=== PATIENT | male | born 1950 | race Caucasian/White ===

== ENCOUNTER 2018-10-07 08:59 | Day surgery (SDC) | payer MEDICARE, OTHER ==
[~2018-10-07] VITALS: Ht 157.5 cm; Wt 77.5 kg
[~2018-10-07 08:59] MED LIST: ASPIRIN; ATORVASTATIN; ENALAPRIL; GLIMEPERIDE; INHALERS; JANUMET; METFORMIN; METOPROLOL; PANTOPRAZOLE
[2018-10-07 09:43] VITALS: Ht 157.5 cm; Wt 77.5 kg
[2018-10-07 10:13] VITALS: BP 162/90; PULSE 85; RESP 18
--- NOTE | 2018-10-07 10:21 | PREAC ---
Date/Time of Note Date/Time of Note DATE: 10/07/18 TIME: 10:20 Anesthesia Eval and Record Evaluation Time Pre-Procedure Interview DATE: 10/07/18 TIME: 10:20 Age 68 Sex male NPO: 8 hrs Preoperative diagnosis GERD Planned procedure egd, colonoscopy Past Medical History Past Medical History: Includes Cardio: HTN Endo: Diabetes Pulm: Smoking Hx, COPD GI: GERD, Obesity Surgery & Anesthesia Issues No known issue Meds Anticoagulation: No Beta Robin within 24 hr: No Reason Beta Robin not given: Pt. not on B-Robin Reported Medications [Aspirin] No Conflict Check 10/07/18 [Atorvastatin] No Conflict Check 10/07/18 [Pantoprazole] No Conflict Check 10/07/18 [Glimeperide] No Conflict Check 10/07/18 [Inhalers] No Conflict Check 10/07/18 [Enalapril] No Conflict Check 10/07/18 [Metoprolol] No Conflict Check 10/07/18 [Janumet + Metformin] No Conflict Check 10/07/18 Meds reviewed: Yes Allergies Coded Allergies: No Known Allergy (Unverified , 10/07/18) Allergies Reviewed: Yes Labs/Studies Labs Reviewed: Reviewed by anesthesiologist test: N/A Studies: ECG Pre-procedure Exam Airway: Adequate mouth opening, Adequate thyromental dist Mallampati: Mallampati II Teeth: Abnormal Lung: Normal Heart: Normal ASA Physical Status ASA physical status: 3 Emergency: None Planned Anesthetic General/MAC: Mask, MAC Pre-operative Attestations Prior to commencing anesthesia and surgery, the patient was re-evaluated, there was verification of: *The patient's identity *The results of appropriate recent lab work and preoperative vital signs *The above evaluation not changing prior to induction *Anesthetic plan, risk benefits, alternative and complications discussed with patient/family; questions answered; patient/family understands, accepts and wishes to proceed. NINA SCHULTZ Oct 07, 2018 10:21
[2018-10-07] MEDS ORDERED: PROPOFOL 40 ML ONE (10:24)
[2018-10-07] MEDS ORDERED: GLYCOPYRROLATE 0.4 MG INJ ONE (10:25)
[2018-10-07 11:27] VITALS: BP 132/90; RESP 16
--- NOTE | 2018-10-08 13:32 | PAC ---
Date/Time of Note Date/Time of Note DATE: 10/08/18 TIME: 13:32 Post-Anesthesia Notes Post-Anesthesia Note Last documented vital signs Vital Signs Date Temp Pulse Resp B/P (MAP) Pulse Ox O2 O2 Flow FiO2 Time Delivery Rate 10/07/18 16 132/90 95 Room Air 11:27 (104) 10/07/18 98.6 85 10:13 Activity: WNL Respiratory function: WNL Cardiovascular function: WNL Mental status: Baseline Pain reasonably controlled: Yes Hydration appropriate: Yes Nausea/Vomiting absent: Yes NINA SCHULTZ Oct 08, 2018 13:32
== END 2018-10-07 12:34 | disposition home or self-care (01) ==
LOC: GIL 08:59
PROVIDERS: ATTEND Internal Medicine Gastroenterology
DX: R19.4 Change in bowel habit (principal); D12.8 Benign neoplasm of rectum; D12.0 Benign neoplasm of cecum; K21.9 Gastro-esophageal reflux disease without esophagitis; I10 Essential (primary) hypertension; E11.9 Type 2 diabetes mellitus without complications; J44.9 Chronic obstructive pulmonary disease, unspecified; F17.200 Nicotine dependence, unspecified, uncomplicated; Z79.82 Long term (current) use of aspirin
CPT/HCPCS: 82962; 88305; 88312